=== PATIENT | male | born 1960 | race Caucasian/White ===

== ENCOUNTER → 2017-01-11 | Outpatient (CLI) | payer OTHER | LOC: RAD 09:16 | PROVIDERS: ATTEND Physician Assistant | DX: N20.0 Calculus of kidney (principal) | CPT/HCPCS: 74176 ==

== ENCOUNTER 2017-10-14 18:00 | Emergency (ER) | payer OTHER ==
[2017-10-14] MEDS ORDERED: OXYCODONE-ACETAMINOPHEN 5-325 MG TABLET PO ONE (18:38)
--- NOTE | 2017-10-14 18:38 | ER Document Report ---
ED Extremity Problem, Upper - General Chief Complaint: Arm Pain Stated Complaint: POST SURGICAL CONCERN Time Seen by Provider: 10/14/17 18:33 Mode of Arrival: Ambulatory Information source: Patient Notes: Patient had a procedure in [place] today on his right elbow. This was done by orthopedics. Patient states when he woke up from sleep he was having elbow pain and noticed that his elbow was very swollen. He states this alarmed him so he came to the emergency department. He states he has not contacted orthopedics. Patient states the pain is throbbing and constant. It is in the right elbow and radiates down the right arm. It is worse with movement and better with rest. Patient denies any fevers. TRAVEL OUTSIDE OF THE [place] IN LAST 30 DAYS: No - Related Data Allergies/Adverse Reactions: Penicillins Allergy (Severe, Verified 10/14/17 18:09) can't breathe, rash Past Medical History - Social History Smoking Status: Unknown if Ever Smoked Frequency of alcohol use: Occasional Drug Abuse: None Lives with: Family Family History: Reviewed & Not Pertinent Patient has suicidal ideation: No Patient has homicidal ideation: No - Past Medical History Cardiac Medical History: Reports: Hx Congestive Heart Failure - History of CHF. , Hx Coronary Artery Disease, Hx Heart Attack, Hx Hypertension Denies: Hx DVT, Hx Hypercholesterolemia, Hx Pulmonary Embolism Pulmonary Medical History: Denies: Hx Asthma, Hx COPD Neurological Medical History: Denies: Hx Seizures Endocrine Medical History: Denies: Hx Diabetes Mellitus Type 1, Hx Diabetes Mellitus Type 2, Hx Hyperthyroidism, Hx Hypothyroidism Renal/ Medical History: Reports: Hx Kidney Stones. Denies: Hx Peritoneal Dialysis Malignancy Medical History: Reports Hx Skin Cancer - Has been treated for melanoma. GI Medical History: Reports: Hx Diverticulitis, Hx Gastroesophageal Reflux Disease. Denies: Hx Cirrhosis, Hx Hepatitis Musculoskeltal Medical History: Reports Hx Arthritis Psychiatric Medical History: Reports: Hx Depression Infectious Medical History: Denies: Hx Hepatitis Past Surgical History: Reports: Hx Cholecystectomy, Hx Coronary Stent, Hx Orthopedic Surgery - Back surgery - Immunizations Immunizations up to date: Yes Hx Diphtheria, Pertussis, Tetanus Vaccination: Yes Review of Systems - Review of Systems Constitutional: denies: Chills, Fever Cardiovascular: denies: Chest pain, Palpitations Respiratory: denies: Cough, Short of breath Physical Exam - Vital signs Interpretation: Hypertensive - General General appearance: Appears well, Alert In distress: None - HEENT Head: Normocephalic, Atraumatic Eyes: Normal Pupils: PERRL - Respiratory Respiratory status: No respiratory distress Chest status: Nontender Breath sounds: Normal Chest palpation: Normal - Cardiovascular Rhythm: Regular Heart sounds: Normal auscultation Murmur: No - Abdominal Inspection: Normal Distension: No distension Bowel sounds: Normal Tenderness: Nontender Organomegaly: No organomegaly - Back Back: Normal, Nontender - Extremities General upper extremity: Tender, Other - Patient's right elbow has a surgical dressing on it. The dressing is transparent. There is swelling of the lateral aspect of the right elbow over the incisional site. There is no significant erythema or warmth however. It is mildly tender to palpation. It is not pulsatile or fluctuant. Patient is neurovascular intact distal to this area of swelling. General lower extremity: Normal inspection, Nontender, Normal color, Normal ROM , Normal temperature, Normal weight bearing. No: John's sign - Neurological Neuro grossly intact: Yes Cognition: Normal Orientation: AAOx4 [place] Coma Scale Eye Opening: Spontaneous [place] Coma Scale Verbal: Oriented [place] Coma Scale Motor: Obeys Commands Gerber Coma Scale Total: 15 Speech: Normal Motor strength normal: LUE, RUE, LLE, RLE Sensory: Normal - Psychological Associated symptoms: Normal affect, Normal mood - Skin Skin Temperature: Warm Skin Moisture: Dry Skin Color: Normal Course - Re-evaluation Re-evalutation: 10/14/17 18:35 Patient's right elbow is swollen consistent with a postoperative hematoma. He does not appear to have any evidence of significant bleeding that require intervention. Exam and timeline are not consistent with infection. Discharge - Discharge Clinical Impression: Post-operative hemorrhage Qualifiers: Surgical complication system/body Area: musculoskeletal system Procedure type: musculoskeletal Qualified Code(s): M96.830 - Postprocedural hemorrhage of a musculoskeletal structure following a musculoskeletal system procedure Condition: Stable Disposition: HOME, SELF-CARE Additional Instructions: Please keep the surgical site elevated above your heart. Use ice 15 minutes every hour while awake. Keep it wrapped with an Omer wrap. Your blood pressure is elevated. Please have this rechecked within 1 week by your doctor. Please do not take anymore Lortab(hydrocodone) for pain. Prescriptions: Oxycodone HCl/Acetaminophen [Percocet 5-325 mg Tablet] 1 - 2 tab PO Q6 5 Days # 15 tablet
== END 2017-10-14 18:47 | disposition home or self-care (01) ==
LOC: ER 18:00
DX: M96.830 Postprocedural hemorrhage of a musculoskeletal structure following a musculoskeletal system procedure (principal); I50.9 Heart failure, unspecified; I11.0 Hypertensive heart disease with heart failure; I25.2 Old myocardial infarction; Z88.0 Allergy status to penicillin; Z87.442 Personal history of urinary calculi; Z90.49 Acquired absence of other specified parts of digestive tract
CPT/HCPCS: 99283

== ENCOUNTER 2017-12-17 23:06 | Emergency (ER) | payer OTHER ==
[2017-12-18] MEDS ORDERED: ASPIRIN 81 MG TABLET, CHEWABLE PO ONE (01:31)
--- NOTE | 2017-12-18 01:45 | ER Document Report ---
ED Blood Pressure Problem - General Mode of Arrival: Ambulatory Information source: Patient TRAVEL OUTSIDE OF THE [place] IN LAST 30 DAYS: No <MOOKIE RODRIGUEZ - Last Filed: 12/18/17 02:04> <PEGGY OBREGON - Last Filed: 01/30/18 19:05> - General Chief Complaint: Blood Pressure Problem Stated Complaint: POSSIBLE HIGH BLOOD PRESSURE Time Seen by Provider: 12/18/17 01:30 Notes: Patient is a 57-year-old male that presents to the emergency department today with complaints of hypertension and a "twinge in his chest". Patient states he has been taking his lisinopril as prescribed but has not been taking his metoprolol for about a week as he "ran out of it" and has not seen his doctor because he has "not had a chance". Patient has 2 stents with the last one being placed on March 18, 2012. (MOOKIE RODRIGUEZ) - Related Data Allergies/Adverse Reactions: Penicillins Allergy (Severe, Verified 10/14/17 18:09) can't breathe, rash Past Medical History - General Information source: Patient - Social History Smoking Status: Never Smoker Cigarette use (# per day): No Frequency of alcohol use: None Drug Abuse: None Lives with: Family Family History: Reviewed & Not Pertinent - Past Medical History Cardiac Medical History: Reports: Hx Congestive Heart Failure - History of CHF. , Hx Coronary Artery Disease, Hx Heart Attack, Hx Hypertension Renal/ Medical History: Reports: Hx Kidney Stones Malignancy Medical History: Reports Hx Skin Cancer - Has been treated for melanoma. GI Medical History: Reports: Hx Diverticulitis, Hx Gastroesophageal Reflux Disease Musculoskeltal Medical History: Reports Hx Arthritis Psychiatric Medical History: Reports: Hx Depression Past Surgical History: Reports: Hx Cholecystectomy, Hx Coronary Stent, Hx Orthopedic Surgery - Back surgery - Immunizations Immunizations up to date: Yes Hx Diphtheria, Pertussis, Tetanus Vaccination: Yes <MOOKIE RODRIGUEZ - Last Filed: 12/18/17 02:04> Review of Systems - Review of Systems Constitutional: No symptoms reported EENT: No symptoms reported Cardiovascular: See HPI, Chest pain, Other - hypertension Respiratory: No symptoms reported Gastrointestinal: No symptoms reported Genitourinary: No symptoms reported Male Genitourinary: No symptoms reported Musculoskeletal: No symptoms reported Skin: No symptoms reported Hematologic/Lymphatic: No symptoms reported Neurological/Psychological: No symptoms reported -: Yes All other systems reviewed and negative <MOOKIE RODRIGUEZ - Last Filed: 12/18/17 02:04> Physical Exam - Vital signs Interpretation: Hypertensive - General General appearance: Appears well, Alert - HEENT Head: Normocephalic, Atraumatic Eyes: Normal Pupils: PERRL - Respiratory Respiratory status: No respiratory distress Chest status: Nontender Breath sounds: Normal Chest palpation: Normal - Cardiovascular Rhythm: Regular Heart sounds: Normal auscultation Murmur: No - Abdominal Inspection: Normal Distension: No distension Bowel sounds: Normal Tenderness: Nontender Organomegaly: No organomegaly - Back Back: Normal, Nontender - Extremities General upper extremity: Normal inspection, Nontender, Normal color, Normal ROM , Normal temperature General lower extremity: Normal inspection, Nontender, Normal color, Normal ROM , Normal temperature, Normal weight bearing. No: John's sign - Neurological Neuro grossly intact: Yes Cognition: Normal Orientation: AAOx4 [place] Coma Scale Eye Opening: Spontaneous Gerber Coma Scale Verbal: Oriented Gerber Coma Scale Motor: Obeys Commands Gerber Coma Scale Total: 15 Speech: Normal Motor strength normal: LUE, RUE, LLE, RLE Sensory: Normal - Psychological Associated symptoms: Normal affect, Normal mood - Skin Skin Temperature: Warm Skin Moisture: Dry Skin Color: Normal <PEGGY OBREGON - Last Filed: 01/30/18 19:05> - Vital signs Vitals: Temp Pulse Resp BP Pulse Ox 98.1 F 94 21 H 188/88 H 97 12/17/17 23:25 12/17/17 23:25 12/17/17 23:25 12/17/17 23:25 12/17/17 23:25 Course - Laboratory Result Diagrams: 12/18/17 01:35 12/18/17 01:35 <MOOKIE RODRIGUEZ - Last Filed: 12/18/17 02:04> - Laboratory Result Diagrams: 12/18/17 01:35 12/18/17 01:35 <PEGGY OBREGON - Last Filed: 01/30/18 19:05> - Re-evaluation Re-evalutation: 12/18/17 02:47 Patient with no complaints at this time. Blood pressure is downtrending with home metoprolol dose. Patient took lisinopril prior to arrival. Troponin 0.04. Will do repeat. Patient informs me that his doctor thought that he might have a mild touch of pneumonia. No acute findings on chest x- ray. Patient has been taking azithromycin at home. He is also been taking over -the-counter cough and cold medications. Patient is advised to stop these as it could raise his blood pressure. (PEGGY OBREGON) - Vital Signs Vital signs: Temp Pulse Resp BP Pulse Ox 98.1 F 93 18 179/90 H 98 12/17/17 23:25 12/18/17 00:49 12/18/17 06:13 12/18/17 06:13 12/18/17 06:13 - Laboratory Laboratory results interpreted by me: 12/18/17 12/18/17 01:35 01:35 RBC 4.21 L Seg Neutrophils % 79.3 H Glucose 114 H Discharge <MOOKIE RODRIGUEZ - Last Filed: 12/18/17 02:04> <PEGGY OBREGON - Last Filed: 01/30/18 19:05> - Discharge Clinical Impression: HTN (hypertension) Qualifiers: Hypertension type: unspecified Qualified Code(s): I10 - Essential (primary) hypertension Condition: Stable Disposition: HOME, SELF-CARE Instructions: High Blood Pressure, Requiring Treatment ([facility]) Additional Instructions: Please follow-up with your primary care doctor this week. Return if you have any worsening or concerning symptoms. Prescriptions: Metoprolol Tartrate 25 mg PO BID #60 tablet Scribe Attestation: 12/18/17 03:56 I personally performed the services described in the documentation, reviewed and edited the documentation which was dictated to the scribe in my presence, and it accurately records my words and actions. (PEGGY OBREGON) Scribe Documentation - Scribe Written by Deven:: Deven Lopez, 12/18/2017 0218 acting as scribe for :: Pernell <MOOKIE RODRIGUEZ - Last Filed: 12/18/17 02:04>
[2017-12-18] MEDS ORDERED: METOPROLOL TARTRATE 25 MG TABLET PO ONE (01:47)
[2017-12-18] MEDS ORDERED: METOPROLOL TARTRATE PF/INJ 5 MG/5 ML SDV IV ONE (02:15)
[2017-12-18 02:19] LABS: ABSOLUTE LYMPHOCYTES (AUTO) 1.5 10^3/uL (0.5-4.7); ABSOLUTE MONOCYTES (AUTO) 0.6 10^3/uL (0.1-1.4); ABSOLUTE NEUT (AUTO) 7.9 10^3/uL (1.7-8.2); BASOPHILS % (AUTO) 0.1 % (0-2); HEMATOCRIT 39.5 % (37.9-51.0); HEMOGLOBIN 13.7 g/dL (13.5-17.0); LYMPHOCYTES % (AUTO) 14.7 % (13-45); MEAN CORPUSCULAR HEMOGLOBIN 32.4 pg (27.0-33.4); MEAN CORPUSCULAR HGB CONC 34.6 g/dL (32.0-36.0); MEAN CORPUSCULAR VOLUME 94 fl (80-97); MONOCYTES % (AUTO) 5.9 % (3-13); PLATELET COUNT 256 10^3/uL (150-450); RED BLOOD COUNT 4.21 10^6/uL (4.35-5.55); RED CELL DISTRIBUTION WIDTH 13.5 % (11.5-14.0); SEGMENTED NEUTROPHILS % (AUTO) 79.3 % (42-78); TOTAL CELLS COUNTED % (AUTO) 100 %
[2017-12-18 02:26] LABS: ALANINE AMINOTRANSFERASE 53 U/L (21-72); ALBUMIN 4.1 g/dL (3.5-5.0); ALKALINE PHOSPHATASE 92 U/L (38-126); ANION GAP 10 (5-19); ASPARTATE AMINO TRANSFERASE 36 U/L (17-59); BILIRUBIN,DIRECT 0.3 mg/dL (0.0-0.4); BILIRUBIN,TOTAL 0.3 mg/dL (0.2-1.3); BLOOD UREA NITROGEN 18 mg/dL (7-20); CALCIUM 9.6 mg/dL (8.4-10.2); CARBON DIOXIDE 26 mmol/L (22-30); CHLORIDE 107 mmol/L (98-107); CREATINE KINASE 65 U/L (55-170); GLUCOSE 114 mg/dL (75-110); POTASSIUM 4.1 mmol/L (3.6-5.0); SODIUM 142.9 mmol/L (137-145); TOTAL PROTEIN 6.9 g/dL (6.3-8.2)
--- NOTE | 2017-12-18 02:33 | RADIOLOGY REPORT (SQ) ---
EXAM DESCRIPTION: CHEST SINGLE VIEW CLINICAL HISTORY: 57 years Male, HTN COMPARISON: 06/29/2016 NUMBER OF VIEWS/TECHNIQUE: 1/AP LIMITATIONS: None. FINDINGS: Normal lung volume, clear parenchyma, normal cardiac silhouette, and intact bony thorax. IMPRESSION: No acute cardiopulmonary findings.
[2017-12-18 02:58] LABS: CREATINE KINASE MB 1.46 ng/mL (<4.55)
[2017-12-18 03:08] LABS: TROPONIN I 0.04 ng/mL
[2017-12-18 06:19] VITALS: BP 179/90
--- NOTE | 2017-12-18 08:27 | EKG REPORT ---
SEVERITY:- NORMAL ECG - SINUS RHYTHM : Confirmed by: Indio Ervin MD 18-Dec-2017 08:26:21
== END 2017-12-18 06:20 | disposition home or self-care (01) ==
LOC: ER 23:06
DX: I10 Essential (primary) hypertension (principal); R09.89 Other specified symptoms and signs involving the circulatory and respiratory systems
CPT/HCPCS: 36415; 71045; 80053; 82550; 82553; 84484; 85025; 93005; 93010; 99284

== ENCOUNTER 2018-06-08 17:41 | Emergency (ER) | payer BC, OTHER ==
[2018-06-08] MEDS ORDERED: ASPIRIN 81 MG TABLET, CHEWABLE PO ONE (18:26)
--- NOTE | 2018-06-08 18:29 | ER Document Report ---
ED Medical Screen (RME) - General Chief Complaint: Chest Pain Stated Complaint: CHEST PAIN Time Seen by Provider: 06/08/18 18:15 TRAVEL OUTSIDE OF THE [place] IN LAST 30 DAYS: No - HPI Notes: 06/08/18 18:27 Intermittent chest pain with a history of 2 stents no chest pain in triage states scheduled for catheterization on June 17 due to abnormal stress test - Related Data Allergies/Adverse Reactions: Penicillins Allergy (Severe, Verified 10/14/17 18:09) can't breathe, rash Past Medical History - Social History Chew tobacco use (# tins/day): No Frequency of alcohol use: None Drug Abuse: None - Past Medical History Cardiac Medical History: Reports: Hx Congestive Heart Failure - History of CHF. , Hx Coronary Artery Disease, Hx Heart Attack, Hx Hypertension Denies: Hx DVT, Hx Hypercholesterolemia, Hx Pulmonary Embolism Pulmonary Medical History: Denies: Hx Asthma, Hx COPD Neurological Medical History: Denies: Hx Seizures Endocrine Medical History: Denies: Hx Diabetes Mellitus Type 1, Hx Diabetes Mellitus Type 2, Hx Hyperthyroidism, Hx Hypothyroidism Renal/ Medical History: Reports: Hx Kidney Stones. Denies: Hx Peritoneal Dialysis Malignancy Medical History: Reports Hx Skin Cancer - Has been treated for melanoma. GI Medical History: Reports: Hx Diverticulitis, Hx Gastroesophageal Reflux Disease. Denies: Hx Cirrhosis, Hx Hepatitis Musculoskeltal Medical History: Reports Hx Arthritis Psychiatric Medical History: Reports: Hx Depression Infectious Medical History: Denies: Hx Hepatitis Past Surgical History: Reports: Hx Cardiac Catheterization, Hx Cholecystectomy, Hx Coronary Stent, Hx Orthopedic Surgery - Back surgery - Immunizations Immunizations up to date: Yes Hx Diphtheria, Pertussis, Tetanus Vaccination: Yes Review of Systems - Review of Systems Cardiovascular: Chest pain Physical Exam - Vital signs Vitals: Temp Pulse Resp BP Pulse Ox 97.4 F 81 18 152/71 H 100 06/08/18 17:45 06/08/18 17:45 06/08/18 17:45 06/08/18 17:45 06/08/18 17:45 - Respiratory Respiratory status: No respiratory distress Chest status: Nontender Breath sounds: Normal Chest palpation: Normal - Cardiovascular Rhythm: Regular Heart sounds: Normal auscultation Course - Vital Signs Vital signs: Temp Pulse Resp BP Pulse Ox 97.4 F 81 18 152/71 H 100 06/08/18 17:45 06/08/18 17:45 06/08/18 17:45 06/08/18 17:45 06/08/18 17:45
--- NOTE | 2018-06-08 19:11 | EKG REPORT ---
SEVERITY:- NORMAL ECG - SINUS RHYTHM : Confirmed by: Indio Ervin MD 08-Jun-2018 19:10:45
[2018-06-08 19:18] LABS: ABSOLUTE EOSINOPHILS # (AUTO) 0.4 10^3/uL (0.0-0.6); ABSOLUTE LYMPHOCYTES (AUTO) 1.9 10^3/uL (0.5-4.7); ABSOLUTE MONOCYTES (AUTO) 0.6 10^3/uL (0.1-1.4); ABSOLUTE NEUT (AUTO) 5.6 10^3/uL (1.7-8.2); BASOPHILS % (AUTO) 0.5 % (0-2); EOSINOPHILS % (AUTO) 4.7 % (0-6); HEMOGLOBIN 14.4 g/dL (13.5-17.0); LYMPHOCYTES % (AUTO) 21.7 % (13-45); MEAN CORPUSCULAR HGB CONC 35.1 g/dL (32.0-36.0); MEAN CORPUSCULAR VOLUME 94 fl (80-97); MONOCYTES % (AUTO) 7.1 % (3-13); PLATELET COUNT 218 10^3/uL (150-450); RED BLOOD COUNT 4.37 10^6/uL (4.35-5.55); RED CELL DISTRIBUTION WIDTH 13.6 % (11.5-14.0); TOTAL CELLS COUNTED % (AUTO) 100 %; WHITE BLOOD COUNT 8.5 10^3/uL (4.0-10.5)
[2018-06-08 19:27] LABS: INTERNATIONAL RATION (INR) 0.96; PROTHROMBIN TIME 13.2 SEC (11.4-15.4)
[2018-06-08 19:41] LABS: ALANINE AMINOTRANSFERASE 22 U/L (21-72); ALKALINE PHOSPHATASE 79 U/L (38-126); ANION GAP 8 (5-19); ASPARTATE AMINO TRANSFERASE 19 U/L (17-59); BILIRUBIN,DIRECT 0.3 mg/dL (0.0-0.4); BILIRUBIN,TOTAL 0.4 mg/dL (0.2-1.3); BLOOD UREA NITROGEN 14 mg/dL (7-20); CALCIUM 9.1 mg/dL (8.4-10.2); CARBON DIOXIDE 28 mmol/L (22-30); CHLORIDE 107 mmol/L (98-107); CREATINE KINASE 81 U/L (55-170); GLUCOSE 95 mg/dL (75-110); POTASSIUM 4.3 mmol/L (3.6-5.0); SODIUM 143.4 mmol/L (137-145); TOTAL PROTEIN 6.8 g/dL (6.3-8.2)
[2018-06-08 19:53] LABS: CREATINE KINASE MB 3.39 ng/mL (<4.55)
[2018-06-08 20:00] LABS: TROPONIN I 0.196 ng/mL
--- NOTE | 2018-06-08 20:03 | RADIOLOGY REPORT (SQ) ---
EXAM DESCRIPTION: CHEST SINGLE VIEW COMPLETED DATE/TIME: 06/08/2018 7:38 pm REASON FOR STUDY: cp COMPARISON: 12/18/2017 NUMBER OF VIEWS: One view. TECHNIQUE: Single frontal radiographic view of the chest acquired. LIMITATIONS: None. FINDINGS: LUNGS AND PLEURA: No opacities, masses or pneumothorax. No pleural effusion. Attenuated bl ood vessels and flattened luis alberto-diaphragms. MEDIASTINUM AND HILAR STRUCTURES: No masses. Contour normal. HEART AND VASCULAR STRUCTURES: Heart normal in size. Normal vasculature. BONES: No acute findings. HARDWARE: None in the chest. OTHER: No other significant finding. IMPRESSION: COPD. NO ACUTE RADIOGRAPHIC FINDING IN THE CHEST. TECHNICAL DOCUMENTATION: JOB ID: [id number] [employer] All Rights Reserved Reading location - IP/workstation name: [email or web address]
--- NOTE | 2018-06-08 20:54 | ER Document Report ---
ED General - General Chief Complaint: Chest Pain Stated Complaint: CHEST PAIN Time Seen by Provider: 06/08/18 18:15 Notes: Patient is a 57-year-old male with a past medical history of hypertension, hyperlipidemia, known coronary artery disease status post stenting, recent positive stress test scheduled for a cardiac catheterization on 06/17 who presents with an episode of chest pain that occurred at approximately 1830. The patient describes this as a 20 minute episode of left-sided chest pain that was pressing, crushing in nature with radiation into his left shoulder. He denies associated shortness of breath, nausea, vomiting or diaphoresis. He took an aspirin and sublingual nitroglycerin and the pain did resolve. He has not had recurrence of pain since that time. Denies a history of similar symptoms in the past. 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 He denies any symptoms currently. TRAVEL OUTSIDE OF THE [place] IN LAST 30 DAYS: No - Related Data Allergies/Adverse Reactions: Penicillins Allergy (Severe, Verified 10/14/17 18:09) can't breathe, rash Past Medical History - General Information source: Patient - Social History Smoking Status: Former Smoker Chew tobacco use (# tins/day): No Frequency of alcohol use: None Drug Abuse: None Lives with: Spouse/Significant other Family History: Reviewed & Not Pertinent Patient has suicidal ideation: No Patient has homicidal ideation: No - Past Medical History Cardiac Medical History: Reports: Hx Congestive Heart Failure - History of CHF. , Hx Coronary Artery Disease, Hx Heart Attack, Hx Hypertension Denies: Hx DVT, Hx Hypercholesterolemia, Hx Pulmonary Embolism Pulmonary Medical History: Denies: Hx Asthma, Hx COPD Neurological Medical History: Denies: Hx Seizures Endocrine Medical History: Denies: Hx Diabetes Mellitus Type 1, Hx Diabetes Mellitus Type 2, Hx Hyperthyroidism, Hx Hypothyroidism Renal/ Medical History: Reports: Hx Kidney Stones. Denies: Hx Peritoneal Dialysis Malignancy Medical History: Reports Hx Skin Cancer - Has been treated for melanoma. GI Medical History: Reports: Hx Diverticulitis, Hx Gastroesophageal Reflux Disease. Denies: Hx Cirrhosis, Hx Hepatitis Musculoskeletal Medical History: Reports Hx Arthritis Psychiatric Medical History: Reports: Hx Depression Infectious Medical History: Denies: Hx Hepatitis Past Surgical History: Reports: Hx Cardiac Catheterization, Hx Cholecystectomy, Hx Coronary Stent, Hx Orthopedic Surgery - Back surgery - Immunizations Immunizations up to date: Yes Hx Diphtheria, Pertussis, Tetanus Vaccination: Yes Review of Systems - Review of Systems Notes: Constitutional: Negative for fever. HENT: Negative for sore throat. Eyes: Negative for visual changes. Cardiovascular: Positive for chest pain. Respiratory: Negative for shortness of breath. Gastrointestinal: Negative for abdominal pain, vomiting or diarrhea. Genitourinary: Negative for dysuria. Musculoskeletal: Negative for back pain. Skin: Negative for rash. Neurological: Negative for headaches, weakness or numbness. 10 point ROS negative except as marked above and in HPI. Physical Exam - Vital signs Vitals: Temp Pulse Resp BP Pulse Ox 97.4 F 81 18 152/71 H 100 06/08/18 17:45 06/08/18 17:45 06/08/18 17:45 06/08/18 17:45 06/08/18 17:45 Interpretation: Hypertensive Notes: PHYSICAL EXAMINATION: GENERAL: Well-appearing, well-nourished and in no acute distress. HEAD: Atraumatic, normocephalic. EYES: Pupils equal round and reactive to light, extraocular movements intact, sclera anicteric, conjunctiva are normal. ENT: nares patent, oropharynx clear without exudates. Moist mucous membranes. NECK: Normal range of motion, supple without lymphadenopathy LUNGS: Breath sounds clear to auscultation bilaterally and equal. No wheezes rales or rhonchi. HEART: Regular rate and rhythm without murmurs ABDOMEN: Soft, nontender, normoactive bowel sounds. No guarding, no rebound. No masses appreciated. EXTREMITIES: Normal range of motion, no pitting or edema. No cyanosis. NEUROLOGICAL: No focal neurological deficits. Moves all extremities spontaneously and on command. PSYCH: Normal mood, normal affect. SKIN: Warm, Dry, normal turgor, no rashes or lesions noted. Course - Re-evaluation Re-evalutation: 06/08/18 20:53 Patient presents with left-sided chest pain with associated nausea that resolved after one sublingual nitroglycerin. He is currently chest pain-free. Initial EKG without any ischemic changes. Initial cardiac markers are elevated at 0.196. Patient does not have a chronically elevated troponin. He is scheduled for a cardiac catheterization on the of this month at [facility] due to concerns of a positive stress test several weeks ago. However given his elevated cardiac marker I have contacted them to determine if they would like to proceed with a catheterization on a more urgent basis given his elevated troponin. 06/08/18 21:19 I discussed this case with the PA working under Dr. Oropeza who has accepted the patient to Dr. Oropeza's service at [facility]. The patient continues to be asymptomatic, hemodynamically within normal limits, no chest pain. 2330-transport has arrived. Patient remains without chest pain. He is appropriate for transfer. - Vital Signs Vital signs: Temp Pulse Resp BP Pulse Ox 97.9 F 67 13 140/70 H 97 06/08/18 22:01 06/08/18 21:54 06/08/18 23:02 06/08/18 23:02 06/08/18 23:02 - Laboratory Result Diagrams: 06/08/18 19:08 06/08/18 19:08 - Diagnostic Test Radiology reviewed: Image reviewed, Reports reviewed Radiology results interpreted by me: 06/08/18 21:19 Chest x-ray: No acute infiltrate or pneumothorax - EKG Interpretation by Me Additional EKG results interpreted by me: 06/08/18 21:19 Sinus rhythm. Rate 86. No ST elevations or depressions. QTC is 417. Discharge - Discharge Clinical Impression: NSTEMI (non-ST elevated myocardial infarction) Chest pain Qualifiers: Chest pain type: unspecified Qualified Code(s): R07.9 - Chest pain, unspecified Condition: Fair Disposition: [facility]
[2018-06-08] MEDS ORDERED: ENOXAPARIN SODIUM INJ 80 MG/0.8 ML DISP.SYRIN SUBCUT SCH (22:00)
[2018-06-08 23:13] VITALS: BP 140/70
== END 2018-06-08 23:16 | disposition short-term general hospital (02) ==
LOC: ER 17:41
DX: I21.4 Non-ST elevation (NSTEMI) myocardial infarction (principal); I10 Essential (primary) hypertension; I25.10 Atherosclerotic heart disease of native coronary artery without angina pectoris; I25.2 Old myocardial infarction; Z95.5 Presence of coronary angioplasty implant and graft; Z87.891 Personal history of nicotine dependence; Z88.0 Allergy status to penicillin
CPT/HCPCS: 93005; 99285; 96372; 36415; 82553; 82550; 85025; 85610; 80053; 84484; 71045; 93010; J1650

== ENCOUNTER 2020-04-19 02:37 | Observation (INO) | payer BC ==
--- NOTE | 2020-04-19 03:07 | ER Document Report ---
ED General - General Chief Complaint: Shortness Of Breath Stated Complaint: SHORTNESS OF BREATH Time Seen by Provider: 04/19/20 02:57 Mode of Arrival: Medic Information source: Patient Notes: 59-year-old male arrives by EMS after having chest pain for 2 hours beginning at 2300 and lasting until 0 100. He then had residual shortness of breath feeling like he cannot get a deep breath. He has never had congestive heart failure flash pulmonary edema but has had a IA with stents placed in [place] per Dr. Blankenship in January of last year. He smokes 1 pack of cigarettes per day from age 31 until last year when he had his IA and then he quit. He denies being an alcoholic or drinking any alcohol. Patient denies any history of DVT or pulmonary embolism. He reports his chest pain was left pectoral with 6 out of 10 but now it is 0 out of 10 with no referral. Patient did have some diaphoresis but no nausea or vomiting. TRAVEL OUTSIDE OF THE [place] IN LAST 30 DAYS: No - HPI Onset: Just prior to arrival Onset/Duration: Sudden, Persistent Quality of pain: Achy Severity: Moderate Pain Level: 3 Associated symptoms: Shortness of breath Exacerbated by: Deep breathing Relieved by: Denies Similar symptoms previously: Yes Recently seen / treated by doctor: Yes - [facility] last year with stents - Related Data Allergies/Adverse Reactions: Penicillins Allergy (Severe, Verified 10/14/17 18:09) can't breathe, rash Past Medical History - General Information source: Patient, Emergency Med Personnel - Social History Smoking Status: Former Smoker Cigarette use (# per day): No Chew tobacco use (# tins/day): No Smoking Education Provided: No Frequency of alcohol use: None Drug Abuse: None Lives with: Family Family History: Reviewed & Not Pertinent Patient has suicidal ideation: No Patient has homicidal ideation: No - Past Medical History Cardiac Medical History: Reports: Hx Congestive Heart Failure - History of CHF., Hx Coronary Artery Disease, Hx Heart Attack, Hx Hypertension Denies: Hx DVT, Hx Hypercholesterolemia, Hx Pulmonary Embolism Pulmonary Medical History: Denies: Hx Asthma, Hx COPD Neurological Medical History: Denies: Hx Seizures Endocrine Medical History: Denies: Hx Diabetes Mellitus Type 1, Hx Diabetes Mellitus Type 2, Hx Hyperthyroidism, Hx Hypothyroidism Renal/ Medical History: Reports: Hx Kidney Stones. Denies: Hx Peritoneal Dialysis Malignancy Medical History: Reports Hx Skin Cancer - Has been treated for melanoma. GI Medical History: Reports: Hx Diverticulitis, Hx Gastroesophageal Reflux Di sease. Denies: Hx Cirrhosis, Hx Hepatitis Musculoskeletal Medical History: Reports Hx Arthritis Psychiatric Medical History: Reports: Hx Depression Infectious Medical History: Denies: Hx Hepatitis Past Surgical History: Reports: Hx Cardiac Catheterization, Hx Cholecystectomy, Hx Coronary Stent, Hx Orthopedic Surgery - Back surgery - Immunizations Immunizations up to date: Yes Hx Diphtheria, Pertussis, Tetanus Vaccination: Yes Review of Systems - Review of Systems Constitutional: No symptoms reported EENT: No symptoms reported Cardiovascular: See HPI, Chest pain Respiratory: See HPI, Short of breath Gastrointestinal: No symptoms reported Genitourinary: No symptoms reported Male Genitourinary: No symptoms reported Musculoskeletal: No symptoms reported Skin: No symptoms reported Hematologic/Lymphatic: No symptoms reported Neurological/Psychological: No symptoms reported Physical Exam - Vital signs Vitals: Resp 19 04/19/20 02:41 - General General appearance: Alert - HEENT Head: Normocephalic, Atraumatic Eyes: Normal Pupils: PERRL Nasal: Normal Mouth/Lips: Normal Mucous membranes: Normal Pharynx: Normal Neck: Normal - Respiratory Respiratory status: No respiratory distress Chest status: Nontender Breath sounds: Normal Chest palpation: Normal - Cardiovascular Rhythm: Regular Heart sounds: Normal auscultation Murmur: No - Abdominal Inspection: Normal - Rectal Hemorrhoids: Other - deferred - Genitourinary Scrotum: Other - deferred - Back Back: Normal - Extremities General upper extremity: Normal inspection General lower extremity: Normal inspection - Neurological Neuro grossly intact: Yes Cognition: Normal Orientation: AAOx4 Gerber Coma Scale Eye Opening: Spontaneous Gerber Coma Scale Verbal: Oriented Gerber Coma Scale Motor: Obeys Commands Gerber Coma Scale Total: 15 Speech: Normal Motor strength normal: LUE, RUE, LLE, RLE Sensory: Normal - Psychological Associated symptoms: Normal affect - Skin Skin Temperature: Warm Skin Moisture: Dry Course - Vital Signs Vital signs: Temp Pulse Resp BP Pulse Ox 98.0 F 24 H 144/74 H 99 04/19/20 04:34 04/19/20 04:00 04/19/20 04:36 04/19/20 04:00 - Laboratory Result Diagrams: 04/19/20 02:53 04/19/20 02:53 Laboratory results interpreted by me: 04/19/20 04/19/20 04/19/20 02:53 02:53 03:56 MCH 34.2 H MCHC 36.2 H Glucose 114 H Urine Ascorbic Acid 20 H - Diagnostic Test Radiology reviewed: Reports reviewed - EKG Interpretation by Me EKG shows normal: Sinus rhythm Rate: Normal Rhythm: NSR Critical Care Note - Critical Care Note Total time excluding time spent on procedures (mins): 90 Comments: I discussed this case with Dr. Zhong table games floor supervisor and he advises keeping the patient for stress test this morning. This is because of the prior IA and 2 stents last year this time. I called Dr. Hewitt [id number] at [phone] and he returned call shortly thereafter. He requested that the patient be asked about admission whether he is okay with this. At 0 448 I asked the patient and he advises he was willing to stay in the hospital. Discharge - Discharge Clinical Impression: Shortness of breath at rest, Angina at rest Chest pain Qualifiers: Chest pain type: unspecified Qualified Code(s): R07.9 - Chest pain, unspecified Disposition: ADMITTED INPATIENT Admitting Provider: Clarice (Hospitalist) Unit Admitted: Telemetry - Very Instructions: Chest Wall Pain ([facility]) Additional Instructions: Transfer this patient up to telemetry
[2020-04-19 03:11] LABS: ABSOLUTE BASOPHILS # (AUTO) 0.1 10^3/uL (0.0-0.2); ABSOLUTE EOSINOPHILS # (AUTO) 0.3 10^3/uL (0.0-0.6); ABSOLUTE LYMPHOCYTES (AUTO) 1.8 10^3/uL (0.5-4.7); ABSOLUTE MONOCYTES (AUTO) 0.8 10^3/uL (0.1-1.4); ABSOLUTE NEUT (AUTO) 4.7 10^3/uL (1.7-8.2); BASOPHILS % (AUTO) 0.7 % (0-2); EOSINOPHILS % (AUTO) 3.9 % (0-6); HEMATOCRIT 42.2 % (37.9-51.0); HEMOGLOBIN 15.3 g/dL (13.5-17.0); LYMPHOCYTES % (AUTO) 23.8 % (13-45); MEAN CORPUSCULAR HEMOGLOBIN 34.2 pg (27.0-33.4); MEAN CORPUSCULAR HGB CONC 36.2 g/dL (32.0-36.0); MEAN CORPUSCULAR VOLUME 94 fl (80-97); MONOCYTES % (AUTO) 10.5 % (3-13); PLATELET COUNT 294 10^3/uL (150-450); RED BLOOD COUNT 4.48 10^6/uL (4.35-5.55); RED CELL DISTRIBUTION WIDTH 12.7 % (11.5-14.0); SEGMENTED NEUTROPHILS % (AUTO) 61.1 % (42-78); TOTAL CELLS COUNTED % (AUTO) 100 %; WHITE BLOOD COUNT 7.7 10^3/uL (4.0-10.5)
[2020-04-19 03:19] LABS: ALBUMIN 4.7 g/dL (3.5-5.0); ALKALINE PHOSPHATASE 106 U/L (38-126); ANION GAP 8 (5-19); ASPARTATE AMINO TRANSFERASE 24 U/L (17-59); BILIRUBIN,TOTAL 0.5 mg/dL (0.2-1.3); BLOOD UREA NITROGEN 17 mg/dL (7-20); CALCIUM 9.6 mg/dL (8.4-10.2); CARBON DIOXIDE 26 mmol/L (22-30); CHLORIDE 105 mmol/L (98-107); CREATINE KINASE 80 U/L (55-170); GLUCOSE 114 mg/dL (75-110); POTASSIUM 3.8 mmol/L (3.6-5.0); TOTAL PROTEIN 7.9 g/dL (6.3-8.2)
[2020-04-19 03:29] LABS: INTERNATIONAL RATION (INR) 0.89; PARTIAL THROMBOPLASTIN TIME 29.5 SEC (23.5-35.8)
[2020-04-19 03:32] LABS: D-DIMER 0.44 ug/mL (0.00-0.50)
[2020-04-19 03:34] LABS: NT PRO BNP 55 pg/mL (<125)
[2020-04-19 03:38] LABS: TROPONIN I < 0.012 ng/mL
--- NOTE | 2020-04-19 03:38 | RADIOLOGY REPORT (SQ) ---
CHEST 1 VIEW on 04/19/2020 at 3:21 AM CLINICAL INDICATION: Chest pain COMPARISON: 06/08/2018 FINDINGS: The lungs are clear. Cardiac, hilar and mediastinal contours are within normal limits. Pulmonary vascularity is within normal limits. Fusion hardware is partially imaged in the lower cervical spine. No acute bony abnormality is noted. IMPRESSION: No active disease.
[2020-04-19 04:12] LABS: VENOUS BLOOD BASE EXCESS -1.9 mmol/L; VENOUS BLOOD HCO3 23.9 mmol/L (20-32); VENOUS BLOOD PCO2 44.2 mmHg (35-63); VENOUS BLOOD PH 7.35 (7.30-7.42)
[2020-04-19 04:15] LABS: APPEARANCE,URINE CLOUDY; BILIRUBIN,URINE NEGATIVE (NEGATIVE); COLOR,URINE YELLOW; GLUCOSE, URINE NEGATIVE (NEGATIVE); KETONES,URINE NEGATIVE (NEGATIVE); LEUKOCYTE ESTERASE,URINE NEGATIVE (NEGATIVE); NITRITE,URINE NEGATIVE (NEGATIVE); PROTEIN,URINE NEGATIVE (NEGATIVE); URINE SPECIFIC GRAVITY 1.005; UROBILINOGEN,URINE NEGATIVE mg/dL (<2.0)
[2020-04-19] MEDS ORDERED: ONDANSETRON HCL INJ/PF 4 MG/2 ML SDV IV PRN (05:25)
[2020-04-19] MEDS ORDERED: LEVALBUTEROL HCL NEB 0.63 MG/3 ML AMPUL NEB PRN (05:25)
[2020-04-19] MEDS ORDERED: MAGNESIUM HYDROXIDE SUSP 30 ML UDCUP PO PRN (05:25)
[2020-04-19] MEDS ORDERED: MAG HYDROX/AL HYDROX/SIMETH SUSP 30 ML UDCUP PO PRN (05:25)
[2020-04-19] MEDS ORDERED: GUAIFENESIN SYRP 200 MG/10 ML UDC PO PRN (05:28)
[2020-04-19] MEDS ORDERED: LORAZEPAM INJ 2 MG/1 ML VIAL IV PRN (05:28)
[2020-04-19] MEDS ORDERED: ACETAMINOPHEN 325 MG TABLET PO PRN (05:28)
[2020-04-19] MEDS ORDERED: MORPHINE SULFATE 10 MG/ML INJ IV PRN (05:28)
[2020-04-19] MEDS ORDERED: HYDRALAZINE HCL INJ/PF 20 MG/1 ML SDV IV PRN (05:28)
[2020-04-19] MEDS ORDERED: HEPARIN SOD (PORCINE) 5,000 UNIT/ML 1 ML VIAL SUBCUT SCH (06:00)
--- NOTE | 2020-04-19 06:57 | PDOC H&P ---
History of Present Illness Admission Date/PCP: 04/19/2020 04:57 No local PCP Patient complains of: Chest pain History of Present Illness: NAHID WHITE is a 59 year old male who presented to the emergency room with a 2-hour history of chest pain. He admits developing constant, moderate, n onradiating chest pain at 11 PM on the evening of 04/18/2020, lasting until 1 AM today, associated with dyspnea and accompanied by diaphoresis.. He describes the chest pain as a pressure/weight on his left anterior chest making it very difficult to get a breath. The pain resolved spontaneously with the exception of mild persistent dyspnea. He denies other associated or accompanying signs and symptoms. He admits prior similar episodes with his coronary artery disease. He has not identified any aggravating or ameliorating factors for his chest pain. In the emergency room he was found to have normal cardiac enzymes and an EKG that showed no evidence of acute myocardial ischemia or injury. Emergency room physician contacted Dr. Zhong who agreed to see the patient in consultation and perform a Cardiolite stress test later this morning, although it is noted the patient had a nuclear medicine/cardiac stress test performed about 3 months ago which showed no evidence of ischemic disease. Patient was subsequently admitted to the hospitalist service for further evaluation and treatment on observation bed assignment status. Past Medical History Cardiac Medical History: Reports: Congestive Heart Failure - History of CHF., Coronary Artery Disease, Myocardial Infarction, Hypertension Denies: DVT, Hyperlipidema, Pulmonary Embolism Pulmonary Medical History: Denies: Asthma, Chronic Obstructive Pulmonary Disease (COPD) EENT Medical History: Denies: Cataracts, Ears - Hearing aids Neurological Medical History: Denies: Hemorrhagic CVA, Ischemic CVA, Seizures Endocrine Medical History: Denies: Diabetes Mellitus Type 1, Diabetes Mellitus Type 2, Hyperthyroidism, Hypothyroidism, Obesity Renal/ Medical History: Reports: Nephrolithiasis Denies: Chronic Kidney Disease Malignancy Medical History: Reports: Skin Cancer - Malignant melanoma GI Medical History: Reports: Diverticulitis, Gastroesophageal Reflux Disease Denies: Cirrhosis, Hepatitis, Peptic Ulcer Disease Musculoskeltal Medical History: Reports: Arthritis Denies: Gout Skin Medical History: Denies: Eczema, Psoriasis Psychiatric Medical History: Reports: Depression, General Anxiety Disorder, Tobacco Dependency Denies: Alcohol Dependency, Substance Abuse Traumatic Medical History: Reports: None Hematology: Denies: Anemia, Bleeding Tendencies Infectious Medical History: Reports: None Past Surgical History Past Surgical History: Reports: Cardiac Catheterization, Cholecystectomy, Coronary Stent, Orthopedic Surgery - Back surgery, Other - Lithotripsy for kidney stones Social History Information Source: Patient Lives with: Family Smoking Status: Former Smoker Electronic Cigarette use?: No Frequency of Alcohol Use: None Hx Recreational Drug Use: No Drugs: None Hx Prescription Drug Abuse: No - Advance Directive Resuscitation Status: Full Code Surrogate healthcare decision maker:: Linette Zavala Family History Family History: COPD, Malignancy. denies: CAD, DM, Hypertension Parental Family History Reviewed: Yes Children Family History Reviewed: No Sibling(s) Family History Reviewed.: Yes Medication/Allergy Home Medications: Aspirin [Aspirin 325 mg Tablet] 325 mg PO DAILY 06/29/16 Albuterol Sulfate [Proair HFA Inhalation Aerosol 8.5 gm MDI] 1 puff IH Q4 PRN #1 mdi 07/24/16 Albuterol Sulfate [Ventolin 0.083% Neb 2.5 mg/3 mL Ampul] 1 vial NEB Q4 #30 vial 07/24/16 Hydrocodone/Acetaminophen [[place] 5-325 mg Tablet] 1 - 2 tab PO ASDIR #15 tablet 07/24/16 Prednisone [Deltasone 10 mg Tablet] 10 mg PO ASDIR PRN #21 tablet 07/24/16 Oxycodone HCl/Acetaminophen [Percocet 5-325 mg Tablet] 1 - 2 tab PO Q6 5 Days #15 tablet 10/14/17 Metoprolol Tartrate 25 mg PO BID #60 tablet 12/18/17 Allergies/Adverse Reactions: Penicillins Allergy (Severe, Verified 10/14/17 18:09) can't breathe, rash ketorolac [From Toradol] Allergy (Verified 04/19/20 06:30) Anaphylaxis Review of Systems Constitutional: ABSENT: chills, fever(s) Eyes: ABSENT: visual disturbances, other - Eye pain Ears: ABSENT: hearing changes, other - Ear pain Nose, Mouth, and Throat: PRESENT: other - Rhinorrhea and "cold" symptoms. ABSENT: headache(s), sore throat Cardiovascular: PRESENT: as per HPI, chest pain. ABSENT: edema, orthropnea, palpitations Respiratory: PRESENT: dyspnea. ABSENT: cough Gastrointestinal: ABSENT: abdominal pain, constipation, diarrhea, nausea, vomiting Genitourinary: ABSENT: dysuria, hematuria Musculoskeletal: ABSENT: back pain, joint swelling Integumentary: ABSENT: pruritus, rash Neurological: ABSENT: confusion, convulsions, focal weakness, memory loss, syncope Psychiatric: ABSENT: anxiety, depression Endocrine: ABSENT: cold intolerance, heat intolerance Hematologic/Lymphatic: ABSENT: easy bleeding, easy bruising Allergic/Immunologic: ABSENT: seasonal rhinorrhea Physical Exam Vital Signs: Temp Pulse Resp BP Pulse Ox 98.0 F 24 H 144/74 H 99 04/19/20 04:34 04/19/20 04:00 04/19/20 04:36 04/19/20 04:00 Intake & Output 04/17/20 04/18/20 04/19/20 23:59 23:59 23:59 Weight 71.6 kg General appearance: PRESENT: no acute distress, cooperative Head exam: PRESENT: atraumatic, normocephalic Eye exam: PRESENT: conjunctiva pink. ABSENT: conjunctival injection, scleral icterus Ear exam: PRESENT: normal external ear exam. ABSENT: bleeding, drainage Mouth exam: PRESENT: dry mucosa, neck supple Neck exam: ABSENT: thyromegaly, tracheal deviation Respiratory exam: PRESENT: clear to auscultation abilio, symmetrical, unlabored Cardiovascular exam: PRESENT: RRR. ABSENT: clicks, gallop, rubs Pulses: PRESENT: normal radial pulses, normal dorsalis pedis pul Vascular exam: PRESENT: normal capillary refill. ABSENT: pallor GI/Abdominal exam: PRESENT: normal bowel sounds, soft Rectal exam: PRESENT: deferred Extremities exam: ABSENT: joint swelling, pedal edema Musculoskeletal exam: ABSENT: deformity, dislocation Neurological exam: PRESENT: alert, oriented to person, oriented to place, oriented to time, oriented to situation, CN II-XII grossly intact. ABSENT: motor sensory deficit Psychiatric exam: PRESENT: appropriate affect, normal mood Skin exam: PRESENT: dry, intact, warm. ABSENT: jaundice, rash, urticaria Results Laboratory Results: 04/19/20 02:53 04/19/20 02:53 04/19/20 04/19/20 04/19/20 02:53 02:53 03:56 WBC 7.7 RBC 4.48 Hgb 15.3 Hct 42.2 MCV 94 MCH 34.2 H MCHC 36.2 H RDW 12.7 Plt Count 294 Seg Neutrophils % 61.1 VBG pH 7.35 VBG pCO2 44.2 VBG HCO3 23.9 VBG Base Excess -1.9 Sodium 139.4 Potassium 3.8 Chloride 105 Carbon Dioxide 26 Anion Gap 8 BUN 17 Creatinine 0.87 Est GFR ( Amer) > 60 Glucose 114 H Calcium 9.6 Total Bilirubin 0.5 AST 24 Alkaline Phosphatase 106 Total Protein 7.9 Albumin 4.7 Urine Color Urine Appearance Urine pH Ur Specific [place] Urine Protein Urine Glucose (UA) Urine Ketones Urine Blood Urine Nitrite Ur Leukocyte Esterase Urine WBC (Auto) Urine RBC (Auto) 04/19/20 03:56 WBC RBC Hgb Hct MCV MCH MCHC RDW Plt Count Seg Neutrophils % VBG pH VBG pCO2 VBG HCO3 VBG Base Excess Sodium Potassium Chloride Carbon Dioxide Anion Gap BUN Creatinine Est GFR ( Amer) Glucose Calcium Total Bilirubin AST Alkaline Phosphatase Total Protein Albumin Urine Color YELLOW Urine Appearance CLOUDY Urine pH 6.0 Ur Specific [place] 1.005 Urine Protein NEGATIVE Urine Glucose (UA) NEGATIVE Urine Ketones NEGATIVE Urine Blood NEGATIVE Urine Nitrite NEGATIVE Ur Leukocyte Esterase NEGATIVE Urine WBC (Auto) 0 Urine RBC (Auto) 0 04/19/20 04/19/20 02:53 02:53 Creatine Kinase 80 Troponin I < 0.012 NT-Pro-B Natriuret Pep 55 Impressions: Chest X-Ray 04/19/20 02:57 IMPRESSION: No active disease. Assessment and Plan - Diagnosis (1) Chest pain Qualifiers: Chest pain type: unspecified Qualified Code(s): R07.9 - Chest pain, unspecified Is this a current diagnosis for this admission?: Yes (2) Coronary artery disease Qualifiers: Coronary Disease-Associated Artery/Lesion type: jena artery [place] vs. transplanted heart: jena heart Associated angina: with unspecified angina Qualified Code(s): I25.119 - Atherosclerotic heart disease of jena coronary artery with unspecified angina pectoris Is this a current diagnosis for this admission?: Yes (3) Hypertension Qualifiers: Hypertension type: essential hypertension Qualified Code(s): I10 - Essential (primary) hypertension Is this a current diagnosis for this admission?: Yes (4) GERD (gastroesophageal reflux disease) Qualifiers: Esophagitis presence: without esophagitis Qualified Code(s): K21.9 - Gastro-esophageal reflux disease without esophagitis Is this a current diagnosis for this admission?: Yes - Plan Summary Summary: Patient will be admitted to observation status in a telemetry bed where he will receive routine supportive and symptomatic cares. A Cardiolite stress test will be performed later today. Dr. Zhong will be seeing the patient in consultation for cardiology. He will receive morphine sulfate 2 to 4 mg IV every 2 hours as needed for chest pain. He will receive Ativan 1 mg IV every 4 hours as needed for anxiety or restlessness. His usual home medications will be resumed, as luzma ropriate, as soon as his medication list can be verified and reconciled. He will be on a cardiac diet following the stress test. - Time Time Spent with patient: 15-24 minutes Medications reviewed and adjusted accordingly: Yes Anticipated discharge: Home Within: within 24 hours - Inpatient Certification Based on my medical assessment, after consideration of the patient's comorbidities, presenting symptoms, or acuity I expect that the services needed warrant INPATIENT care.: No I certify that my determination is in accordance with my understanding of Medicare's requirements for reasonable and necessary INPATIENT services [42 CFR 412.3e].: No
[2020-04-19] MEDS ORDERED: DOCUSATE SODIUM 100 MG CAPSULE PO SCH (10:00)
[2020-04-19] MEDS ORDERED: FAMOTIDINE 20 MG TABLET PO SCH (10:00)
[2020-04-19 11:36] LABS: TROPONIN I < 0.012 ng/mL
--- NOTE | 2020-04-19 11:56 | PDOC DISCHARGE SUMMARY ---
Impression - Admit/DC Date/PCP Admission Date/Primary Care Provider: 04/19/20 05:06 JULIAN STONE MD Discharge Date: 04/19/20 - Discharge Diagnosis (1) Chest pain Is this a current diagnosis for this admission?: Yes (2) GERD (gastroesophageal reflux disease) Is this a current diagnosis for this admission?: Yes (3) Hypertension Is this a current diagnosis for this admission?: Yes (4) Coronary artery disease Is this a current diagnosis for this admission?: Yes - Additional Information Resuscitation Status: Full Code Discharge Diet: As Tolerated, Cardiac Discharge Activity: Activity As Tolerated, Balance Activity w/Rest Referrals: Ky Blankenship MD [Other] - 05/10/20 1:00 pm (At the [place] location) Prescriptions: Famotidine [Pepcid 20 mg Tablet] 20 mg PO BIDP PRN #20 tablet PRN Reason: Home Medications: Albuterol Sulfate [Proair HFA Inhalation Aerosol 8.5 gm MDI] 2 puff IH Q4HP PRN 04/19/20 Amlodipine Besylate [Norvasc 10 mg Tablet] 10 mg PO DAILY 04/19/20 Clopidogrel Bisulfate [Plavix 75 mg Tablet] 75 mg PO DAILY 04/19/20 Famotidine [Pepcid 20 mg Tablet] 20 mg PO BIDP PRN #20 tablet 04/19/20 Metoprolol Succinate [Toprol Xl] 100 mg PO DAILY 04/19/20 Pravastatin Sodium 40 mg PO DAILY 04/19/20 History of Present Illiness History of Present Illness: According to admitting provider: NAHID WHITE is a 59 year old male who presented to the emergency room with a 2-hour history of chest pain. He admits developing constant, moderate, nonradiating chest pain at 11 PM on the evening of 04/18/2020, lasting until 1 AM today, associated with dyspnea and accompanied by diaphoresis.. He describes the chest pain as a pressure/weight on his left anterior chest making it very difficult to get a breath. The pain resolved spontaneously with the exception of mild persistent dyspnea. He denies other associated or accompanying signs and symptoms. He admits prior similar episodes with his coronary artery disease. He has not identified any aggravating or ameliorating factors for his chest pain. In the emergency room he was found to have normal cardiac enzymes and an EKG that showed no evidence of acute myocardial ischemia or injury. Emergency room physician contacted Dr. Zhong who agreed to see the patient in consultation and perform a Cardiolite stress test later this morning, although it is noted the patient had a nuclear medicine/cardiac stress test performed about 3 months ago which showed no evidence of ischemic disease. Patient was subsequently admitted to the hospitalist service for further evaluation and treatment on observation bed assignment status. Hospital Course Hospital Course: Patient presented to the hospital for evaluation of chest pain. Patient did note eating some spicy foods the prior day and having some indigestion prior to that. In the ER, given patient's history of coronary artery disease with stenting, patient was admitted to rule out ACS. EKG was obtained. Patient's pain was treated with IV morphine as well as Pepcid. Chest x-ray was unremark able. BNP was normal. D-dimer was also normal ruling out PE or aortic dissection. Troponins were measured twice with about 7-hour interval and were both normal ruling out ACS. I believe patient's symptoms may have been secondary to indigestion/GERD. He has been evaluated and cleared by the warp knitter helper for discharge. Patient reports that he just had a stress test done by his primary warp knitter helper here in [place] about 3 months ago and was informed that it was normal. He has been set up for follow-up appointment with his warp knitter helper. Currently his chest pain has resolved. He is being discharged home with Pepcid. Physical Exam Vital Signs: Temp Pulse Resp BP Pulse Ox 98.0 F 69 14 144/66 H 97 04/19/20 11:18 04/19/20 11:18 04/19/20 11:18 04/19/20 11:18 04/19/20 11:18 Intake & Output 04/18/20 04/19/20 04/20/20 06:59 06:59 06:59 Weight 72.7 kg General appearance: PRESENT: no acute distress, cooperative Respiratory exam: PRESENT: unlabored. ABSENT: accessory muscle use, retraction Neurological exam: PRESENT: alert, awake, oriented to person, oriented to place, oriented to time, oriented to situation Results Laboratory Results: WBC 7.7 10^3/uL (4.0-10.5) 04/19/20 02:53 RBC 4.48 10^6/uL (4.35-5.55) 04/19/20 02:53 Hgb 15.3 g/dL (13.5-17.0) 04/19/20 02:53 Hct 42.2 % (37.9-51.0) 04/19/20 02:53 MCV 94 fl (80-97) 04/19/20 02:53 MCH 34.2 pg (27.0-33.4) H 04/19/20 02:53 MCHC 36.2 g/dL (32.0-36.0) H 04/19/20 02:53 RDW 12.7 % (11.5-14.0) 04/19/20 02:53 Plt Count 294 10^3/uL (150-450) 04/19/20 02:53 Lymph % (Auto) 23.8 % (13-45) 04/19/20 02:53 [place] % (Auto) 10.5 % (3-13) 04/19/20 02:53 Eos % (Auto) 3.9 % (0-6) 04/19/20 02:53 Baso % (Auto) 0.7 % (0-2) 04/19/20 02:53 Absolute Neuts (auto) 4.7 10^3/uL (1.7-8.2) 04/19/20 02:53 Absolute Lymphs (auto) 1.8 10^3/uL (0.5-4.7) 04/19/20 02:53 Absolute Monos (auto) 0.8 10^3/uL (0.1-1.4) 04/19/20 02:53 Absolute Eos (auto) 0.3 10^3/uL (0.0-0.6) 04/19/20 02:53 Absolute Basos (auto) 0.1 10^3/uL (0.0-0.2) 04/19/20 02:53 Seg Neutrophils % 61.1 % (42-78) 04/19/20 02:53 PT 12.0 SEC (11.4-15.4) 04/19/20 02:53 INR 0.89 04/19/20 02:53 APTT 29.5 SEC (23.5-35.8) 04/19/20 02:53 D-Dimer 0.44 ug/mL (0.00-0.50) 04/19/20 02:53 VBG pH 7.35 (7.30-7.42) 04/19/20 03:56 VBG pCO2 44.2 mmHg (35-63) 04/19/20 03:56 VBG HCO3 23.9 mmol/L (20-32) 04/19/20 03:56 VBG Base Excess -1.9 mmol/L 04/19/20 03:56 Sodium 139.4 mmol/L (137-145) 04/19/20 02:53 Potassium 3.8 mmol/L (3.6-5.0) 04/19/20 02:53 Chloride 105 mmol/L (98-107) 04/19/20 02:53 Carbon Dioxide 26 mmol/L (22-30) 04/19/20 02:53 Anion Gap 8 (5-19) 04/19/20 02:53 BUN 17 mg/dL (7-20) 04/19/20 02:53 Creatinine 0.87 mg/dL (0.52-1.25) 04/19/20 02:53 Est GFR ( Amer) > 60 (>60) 04/19/20 02:53 Est GFR (MDRD) Non-Af > 60 (>60) 04/19/20 02:53 Glucose 114 mg/dL (75-110) H 04/19/20 02:53 Lactic Acid 0.6 mmol/L (0.7-2.1) L 04/19/20 04:53 Calcium 9.6 mg/dL (8.4-10.2) 04/19/20 02:53 Total Bilirubin 0.5 mg/dL (0.2-1.3) 04/19/20 02:53 Direct Bilirubin 0.0 mg/dL (0.0-0.4) 04/19/20 02:53 Neonat Total Bilirubin Not Reportable 04/19/20 02:53 Neonat Direct Bilirubin Not Reportable 04/19/20 02:53 Neonat Indirect Bili Not Reportable 04/19/20 02:53 AST 24 U/L (17-59) 04/19/20 02:53 ALT 18 U/L (<50) 04/19/20 02:53 Alkaline Phosphatase 106 U/L (38-126) 04/19/20 02:53 Creatine Kinase 69 U/L (55-170) 04/19/20 09:53 CK-MB (CK-2) 1.00 ng/mL (<4.55) 04/19/20 09:53 Troponin I < 0.012 ng/mL 04/19/20 09:53 NT-Pro-B Natriuret Pep 55 pg/mL (<125) 04/19/20 02:53 Total Protein 7.9 g/dL (6.3-8.2) 04/19/20 02:53 Albumin 4.7 g/dL (3.5-5.0) 04/19/20 02:53 Urine Color YELLOW 04/19/20 03:56 Urine Appearance CLOUDY 04/19/20 03:56 Urine pH 6.0 (5.0-9.0) 04/19/20 03:56 Ur Specific [place] 1.005 04/19/20 03:56 Urine Protein NEGATIVE mg/dL (NEGATIVE) 04/19/20 03:56 Urine Glucose (UA) NEGATIVE mg/dL (NEGATIVE) 04/19/20 03:56 Urine Ketones NEGATIVE mg/dL (NEGATIVE) 04/19/20 03:56 Urine Blood NEGATIVE (NEGATIVE) 04/19/20 03:56 Urine Nitrite NEGATIVE (NEGATIVE) 04/19/20 03:56 Urine Bilirubin NEGATIVE (NEGATIVE) 04/19/20 03:56 Urine Urobilinogen NEGATIVE mg/dL (<2.0) 04/19/20 03:56 Ur Leukocyte Esterase NEGATIVE (NEGATIVE) 04/19/20 03:56 Urine WBC (Auto) 0 /HPF 04/19/20 03:56 Urine RBC (Auto) 0 /HPF 04/19/20 03:56 Urine Ascorbic Acid 20 (NEGATIVE) H 04/19/20 03:56 04/19/20 04/19/20 02:53 09:53 CK-MB (CK-2) 1.00 Troponin I < 0.012 < 0.012 NT-Pro-B Natriuret Pep 55 Impressions: Chest X-Ray 04/19/20 02:57 IMPRESSION: No active disease. Plan Time Spent: Less than 30 Minutes Stroke Is this a Stroke Patient?: No Acute Heart Failure - Is this a Heart Failure Patient?: No
[2020-04-19 12:17] VITALS: BP 134/67
--- NOTE | 2020-04-19 20:36 | PDOC CONSULTATION ---
Consultation Consult Date: 04/19/20 Provider Consulted: DEBORAH RODRIGUEZ Consult reason:: Chest pain History of Present Illness Admission Date/PCP: 04/19/20 05:06 Patient complains of: Chest pain History of Present Illness: NAHID WHITE is a 59 year old male with the following active problems. 1. CAD 2. Systemic hypertension 3. Dyslipidemia He was admitted on account of chest pain through the ED. In my conversation patient reports epigastric pain which has now subsided. He reports MPS 3 months ago at a local office which was apparently unremarkable. Now he has no d iscomfort which he characterizes as indigestion rather than chest pain. Past Medical History Cardiac Medical History: Reports: Congestive Heart Failure - History of CHF., Coronary Artery Disease, Myocardial Infarction, Hypertension Denies: DVT, Hyperlipidema, Pulmonary Embolism Pulmonary Medical History: Denies: Asthma, Chronic Obstructive Pulmonary Disease (COPD) EENT Medical History: Denies: Cataracts, Ears - Hearing aids Neurological Medical History: Denies: Hemorrhagic CVA, Ischemic CVA, Seizures Endocrine Medical History: Denies: Diabetes Mellitus Type 1, Diabetes Mellitus Type 2, Hyperthyroidism, Hypothyroidism, Obesity Renal/ Medical History: Reports: Nephrolithiasis Denies: Chronic Kidney Disease Malignancy Medical History: Reports: Skin Cancer - Malignant melanoma GI Medical History: Reports: Diverticulitis, Gastroesophageal Reflux Disease Denies: Cirrhosis, Hepatitis, Peptic Ulcer Disease Musculoskeltal Medical History: Reports: Arthritis Denies: Gout Skin Medical History: Denies: Eczema, Psoriasis Psychiatric Medical History: Reports: Depression, General Anxiety Disorder, Tobacco Dependency Denies: Alcohol Dependency, Substance Abuse Traumatic Medical History: Reports: None Hematology: Denies: Anemia, Bleeding Tendencies Infectious Medical History: Reports: None Past Surgical History Past Surgical History: Reports: Cardiac Catheterization, Cholecystectomy, Coronary Stent, Orthopedic Surgery - Back surgery, Other - Lithotripsy for kidney stones Social History Lives with: Family Smoking Status: Former Smoker Electronic Cigarette use?: No Frequency of Alcohol Use: None Hx Recreational Drug Use: No Drugs: None Hx Prescription Drug Abuse: No - Advance Directive Resuscitation Status: Full Code Family History Family History: COPD, Malignancy. denies: CAD, DM, Hypertension Parental Family History Reviewed: Yes - No familiail illnesses Children Family History Reviewed: NA Sibling(s) Family History Reviewed.: NA Medication/Allergy Home Medications: Albuterol Sulfate [Proair HFA Inhalation Aerosol 8.5 gm MDI] 2 puff IH Q4HP PRN 04/19/20 Amlodipine Besylate [Norvasc 10 mg Tablet] 10 mg PO DAILY 04/19/20 Clopidogrel Bisulfate [Plavix 75 mg Tablet] 75 mg PO DAILY 04/19/20 Famotidine [Pepcid 20 mg Tablet] 20 mg PO BIDP PRN #20 tablet 04/19/20 Metoprolol Succinate [Toprol Xl] 100 mg PO DAILY 04/19/20 Pravastatin Sodium 40 mg PO DAILY 04/19/20 Allergies/Adverse Reactions: Penicillins Allergy (Severe, Verified 10/14/17 18:09) can't breathe, rash ketorolac [From Toradol] Allergy (Verified 04/19/20 06:30) Anaphylaxis Review of Systems Constitutional: PRESENT: as per HPI Cardiovascular: PRESENT: chest pain Gastrointestinal: PRESENT: as per HPI Physical Exam Vital Signs: Temp Pulse Resp BP Pulse Ox 98.0 F 69 14 130/57 H 97 04/19/20 07:55 04/19/20 07:55 04/19/20 07:55 04/19/20 07:55 04/19/20 07:55 Intake & Output 04/18/20 04/19/20 04/20/20 06:59 06:59 06:59 Weight 72.7 kg General appearance: PRESENT: no acute distress, cooperative, well-developed, well-nourished Head exam: PRESENT: atraumatic, normocephalic Eye exam: PRESENT: conjunctiva pink, EOMI Respiratory exam: PRESENT: clear to auscultation abilio, symmetrical, unlabored Cardiovascular exam: PRESENT: RRR, +S2 Neurological exam: PRESENT: alert, awake, oriented to person, oriented to place, oriented to time, oriented to situation Psychiatric exam: PRESENT: appropriate affect Skin exam: PRESENT: dry, intact, normal color Results Laboratory Results: 04/19/20 02:53 04/19/20 02:53 04/19/20 04/19/20 04/19/20 02:53 02:53 03:56 WBC 7.7 RBC 4.48 Hgb 15.3 Hct 42.2 MCV 94 MCH 34.2 H MCHC 36.2 H RDW 12.7 Plt Count 294 Seg Neutrophils % 61.1 VBG pH 7.35 VBG pCO2 44.2 VBG HCO3 23.9 VBG Base Excess -1.9 Sodium 139.4 Potassium 3.8 Chloride 105 Carbon Dioxide 26 Anion Gap 8 BUN 17 Creatinine 0.87 Est GFR ( Amer) > 60 Glucose 114 H Lactic Acid Calcium 9.6 Total Bilirubin 0.5 AST 24 Alkaline Phosphatase 106 Total Protein 7.9 Albumin 4.7 Urine Color Urine Appearance Urine pH Ur Specific [place] Urine Protein Urine Glucose (UA) Urine Ketones Urine Blood Urine Nitrite Ur Leukocyte Esterase Urine WBC (Auto) Urine RBC (Auto) 04/19/20 04/19/20 03:56 04:53 WBC RBC Hgb Hct MCV MCH MCHC RDW Plt Count Seg Neutrophils % VBG pH VBG pCO2 VBG HCO3 VBG Base Excess Sodium Potassium Chloride Carbon Dioxide Anion Gap BUN Creatinine Est GFR ( Amer) Glucose Lactic Acid 0.6 L Calcium Total Bilirubin AST Alkaline Phosphatase Total Protein Albumin Urine Color YELLOW Urine Appearance CLOUDY Urine pH 6.0 Ur Specific [place] 1.005 Urine Protein NEGATIVE Urine Glucose (UA) NEGATIVE Urine Ketones NEGATIVE Urine Blood NEGATIVE Urine Nitrite NEGATIVE Ur Leukocyte Esterase NEGATIVE Urine WBC (Auto) 0 Urine RBC (Auto) 0 04/19/20 04/19/20 02:53 02:53 Creatine Kinase 80 Troponin I < 0.012 NT-Pro-B Natriuret Pep 55 EKG Comments: EKG SR 80 bpm, PRWP, Normal AV conduction, BAq=002 ms Troponin X 2 is negative CXR -no acute findings Impressions: Chest X-Ray 04/19/20 02:57 IMPRESSION: No active disease. Assessment & Plan - Diagnosis (1) Chest pain Qualifiers: Chest pain type: unspecified Qualified Code(s): R07.9 - Chest pain, unspecified Is this a current diagnosis for this admission?: Yes Plan: Description of discomfort is more epigastric/ GI distress Recent MPS negative per patient Cardiac bio-markers are negative and EKG is non diagnostic for myocardial ischemia. Would recommend out patient follow up GI evaluation
== END 2020-04-19 12:58 | disposition home or self-care (01) ==
LOC: ER 02:37 → INTOOBSV 05:06 → EH 05:06 → 5 06:20
PROVIDERS: ADMIT Emergency Medicine; ATTEND Internal Medicine
DX: R07.89 Other chest pain (principal); K21.9 Gastro-esophageal reflux disease without esophagitis; I25.119 Atherosclerotic heart disease of native coronary artery with unspecified angina pectoris; E78.5 Hyperlipidemia, unspecified; R61 Generalized hyperhidrosis; R06.02 Shortness of breath; I25.2 Old myocardial infarction; I11.0 Hypertensive heart disease with heart failure; I50.9 Heart failure, unspecified; Z95.5 Presence of coronary angioplasty implant and graft; Z79.899 Other long term (current) drug therapy; Z85.820 Personal history of malignant melanoma of skin; Z87.442 Personal history of urinary calculi; Z90.49 Acquired absence of other specified parts of digestive tract; Z82.5 Family history of asthma and other chronic lower respiratory diseases; Z79.82 Long term (current) use of aspirin; Z87.891 Personal history of nicotine dependence
CPT/HCPCS: 99285; 36415; 82553; 82550; 83605; 85025; 85610; 85730; 80053; 81001; 84484; 85379; 82803; 83880; 71045; G0378 ×2; J1644; J3490